=== PATIENT | female | born 1970 | race Caucasian/White ===

== ENCOUNTER 2017-10-28 12:43 | Emergency (ER) | payer MEDICAID, OTHER ==
[2017-10-28 12:58] LABS: URINE APPEARANCE CLEAR; URINE BILIRUBIN NEGATIVE (NEGATIVE); URINE BLOOD TRACE-I (NEGATIVE); URINE COLOR ORANGE; URINE KETONE NEGATIVE (NEGATIVE); URINE LEUKOCYTE ESTERASE SMALL (NEGATIVE); URINE NITRITE POSITIVE (NEGATIVE); URINE PROTEIN NEGATIVE (NEGATIVE)
[2017-10-28 13:00] LABS: HCG,QUALITATIVE URINE NEGATIVE (NEGATIVE)
[2017-10-28 13:12] LABS: URINE BACTERIA FEW; URINE RBC 0 - 2 (NONE SEEN); URINE SQUAMOUS EPITHELIAL CELL 0 - 2 /hpf
--- NOTE | 2017-10-28 13:19 | Emergency Department Record ---
History of Present Illness - General Chief complaint: Female Urogenital Problem Stated complaint: UTI OR BLADDER INFECTION? Time Seen by Provider: 10/28/17 13:08 Source: Patient Mode of Arrival: Ambulatory Limitations: No limitations - History of Present Illness Initial comments: The patient is here due to a 2 day hx of dysuria with mild low back pain. She has a hx of chronic low back pain due to a cyst per the patient. Now the pain is radiating up mildly. There is no pain down the legs or any leg numbness, weakness, or any bowel or bladder issues. MD Complaint: Dysuria Onset/Timin -: Days(s) Patient : No - Related Data Previous Rx's Medication Instructions Recorded Meloxicam 7.5 mg PO DAILY #14 tablet 10/28/17 Nitrofurantoin Lea [Macrobid] 100 mg PO BID #10 capsule 10/28/17 Allergies Allergy/AdvReac Type Severity Reaction Status Date / Time No Known Drug Allergies Allergy Verified 11/27/14 12:58 Travel Screening - Travel/Exposure Within Last 30 Days Have you traveled within the last 30 days?: No - Travel/Exposure Within Last Year Have you traveled outside the [place] in the last year?: No - Additonal Travel Details Have you been exposed to anyone with a communicable illness?: No - Travel Symptoms Symptom Screening: None Review of Systems Constitutional: Denies: Chills, Fever Eyes: Denies: Eye discharge ENT: Denies: Congestion Respiratory: Denies: Cough, Dyspnea Past Medical History - SOCIAL HISTORY Smoking Status: Never smoker Alcohol Use: None Drug Use: None - RESPIRATORY Hx Respiratory Disorders: No - CARDIOVASCULAR Hx Cardio Disorders: No - NEURO Hx Neuro Disorders: No - GI Hx GI Disorders: Yes Hx Wt Loss/Wt Gain: Yes Comment:: gallbladder issues - Hx Genitourinary Disorders: Yes Hx Kidney Stones: Yes Hx UTI: Yes Comment:: kidney stone, bladder infections and uti's - ENDOCRINE Hx Endocrine Disorders: No - MUSCULOSKELETAL Hx Musculoskeletal Disorders: No - PSYCH Hx Psych Problems: No - HEMATOLOGY/ONCOLOGY Hx Hematology/Oncology Disorders: Yes Hx Cancer: Yes Comment:: cervical cancer - sx to remove Family Medical History Any Significant Family History?: Yes Hx HTN: Father Physical Exam - General General Appearance: Alert, Oriented x3, Cooperative, No acute distress - Head Head exam: Atraumatic, Normocephalic, Normal inspection - Eye Eye exam: Normal appearance, PERRL - Neck Neck exam: Normal inspection, Full ROM. negative: Tenderness - Respiratory Respiratory exam: Normal lung sounds bilaterally. negative: Respiratory distress - Cardiovascular Cardiovascular Exam: Regular rate, Normal rhythm, Normal heart sounds - GI/Abdominal GI/Abdominal exam: Soft, Normal bowel sounds. negative: Tenderness - Extremities Extremities exam: Normal inspection, Full ROM, Normal capillary refill. negative: Tenderness - Back Back exam: Reports: Normal inspection, Full ROM. Denies: CVA tenderness (R), CVA tenderness (L), Muscle spasm, Rash noted, Tenderness - Neurological Neurological exam: Alert, Normal gait, Oriented X3, Reflexes normal. negative: Abnormal gait, Motor sensory deficit Course - Reevaluation(s) Reevaluation #1: The patient is doing well and denies any new pain or any issues. I did discuss the CT report that did not demonstrate any kidney stone or hydro. It did possible demonstrate a pelvic mass but since the patient has not had a JANETT I believe it is her uterus. Because of the possible pelvic mass which is an incidental finding she is to F/U with Dr. Bailey for a review of the official CT report and possible need for further testing. 10/28/17 14:25 Medical Decision Making - Data Complexity MDM Data: Labs Ordered and/or Reviewed, X-Ray Ordered and/or Reviewed - Lab Data Result diagrams: 10/28/17 13:33 10/28/17 13:33 Lab Results 10/28/17 Range/Units 12:55 Urine Color [place] H Urine Appearance Clear Urine pH 6.0 (5.0-8.0) Ur Specific [place] <= 1.005 (1.002-1.030) Urine Protein Negative (NEGATIVE) Urine Glucose (UA) 100 mg/dl H (NEGATIVE) Urine Ketones Negative (NEGATIVE) Urine Blood Trace-i (NEGATIVE) Urine Nitrite Positive H (NEGATIVE) Urine Bilirubin Negative (NEGATIVE) Urine Urobilinogen 1.0 (0.20 - 1.00) E.U./dL Ur Leukocyte Esterase Small H (NEGATIVE) Urine RBC 0 - 2 (NONE SEEN) Urine WBC 10 - 15 (0-2/hpf) U Non-Squamous Epi Cells 0 - 2 /hpf Urine Bacteria Few Urine HCG, Qual Negative (NEGATIVE) - Radiology Data Radiology results: Report reviewed (CT: Neg ureter stone or hydro. Poss pelvic mass vs uterus.) Disposition Disposition: Discharge Clinical Impression: UTI (urinary tract infection) Qualifiers: Urinary tract infection type: site unspecified Hematuria presence: without hematuria Qualified Code(s): N39.0 - Urinary tract infection, site not specified Disposition: Home, Self-Care Condition: (2) Stable Instructions: Urinary Tract Infection in Women (ED) Additional Instructions: Please take the Macrobid as directed along with the Meloxicam. Please see Dr. Bailey for recheck and to have the official CT report evaluated further. Return to the ER for any worsening symptoms. Prescriptions: Meloxicam 7.5 mg PO DAILY #14 tablet Nitrofurantoin Lea [Macrobid] 100 mg PO BID #10 capsule Forms: Patient Portal Access Time of Disposition: 14:29 Quality - Quality Measures Quality Measures: N/A - Blood Pressure Screening View Details: Yes Does Patient Have Any of the Following: No Blood Pressure Classification: Hypertensive Reading Systolic Measurement: 120 Diastolic Measurement: 94 Screening for High Blood Pressure: < First Hypertensive BP, F/U Documented > [ [id number]] First Hypertensive Follow-up Interventions: Referral to alternative/primary care provider.
[2017-10-28 13:40] LABS: BASO % 0.3 % (0-6); EOS % 1.1 % (0-6); GRAN % 62.6 % (47-80); HEMATOCRIT 37.6 % (35.0-47.0); MEAN CELL VOLUME 90.6 fl (81-97); MEAN CORPUSCULAR HEMOGLOBIN 31.3 pg (27-33); MEAN CORPUSCULAR HGB CONC 34.6 g/dl (32-36); MEAN PLATELET VOLUME 9.2 fl (7.4-10.4); PLATELET COUNT 286 K/uL (130-400); RED BLOOD COUNT 4.15 M/uL (3.80-5.40); RED CELL DISTRIBUTION WIDTH 12.8 % (11.5-14.5); WHITE BLOOD COUNT W/O DIFF 6.3 K/uL (4.2-12.2)
[2017-10-28 13:48] LABS: BLOOD UREA NITROGEN 12 mg/dL (6-20); CREATININE 0.7 mg/dL (0.5-0.9); EST GLOMERULAR FILTRATION RATE > 60 mL/min
[2017-10-28 13:51] LABS: GLUCOSE,RANDOM 97 mg/dL (74-109)
--- NOTE | 2017-10-31 08:42 | CT SCAN REPORT ---
EXAM: EMERGENCY CT OF THE ABDOMEN AND PELVIS WITHOUT CONTRAST HISTORY: LEFT FLANK PAIN, MULTIPLE URINARY TRACT INFECTIONS. TECHNIQUE: Axial CT scan of the abdomen and pelvis was performed without oral or IV contrast. Comparison: None. FINDINGS: No intrarenal calculi identified on either side. No hydronephrosis or hydroureter is seen on either side. There is a very tiny calcification seen on image 104 of 170 that is in the region of the left ureter. It is very difficult to determine if this is immediately adjacent to the left ureter or possibly in the left ureter although with no hydronephrosis I suspect this is a phlebolith immediately adjacent to the ureter, however, if there remains a strong clinical suspicion of a ureteral calculus, follow-up CT urography could be performed in an effort to better establish the relationship of this tiny calcification to the nondistended ureter. The ureters appear otherwise unremarkable bilaterally. No bladder calculus evident. In the right side of the pelvis there is an approximately 4.7 cm somewhat rounded structure with a CT density of 32. There is no history of hysterectomy and this may be the uterine fundus tilted towards the right although appears a bit atypical for the uterine fundus and could also be some form of right adnexal mass particularly if there has been a hysterectomy as the uterus is not otherwise clearly visualized. Correlation with the surgical history is suggested and this could be further assessed with a pelvic ultrasound if clinically desired. No calcified gallstones are seen within the gallbladder. Evaluation of the bowel and viscera is very limited without oral or IV contrast. Given this limitation, no definite hepatic, splenic, adrenal, pancreatic, or renal mass identified. The appendix is visualized as a normal caliber structure with no appendicitis identified. No free intraperitoneal air or free intraperitoneal fluid evident. Degenerative disk disease in the lower lumbar spine. IMPRESSION: 1. NO INTRARENAL CALCULI OR HYDRONEPHROSIS EVIDENT. TINY CALCIFICATION IN CLOSE PROXIMITY TO THE LEFT MID URETER MAY JUST BE AN ADJACENT VASCULAR CALCIFICATION THOUGH DIFFICULT TO BE CERTAIN. 2. 4.7 CM DENSITY RIGHT SIDE OF THE PELVIS QUESTIONABLY A TILTED UTERINE FUNDUS. IF THE UTERUS HAS BEEN RESECTED THIS MAY BE SOME FORM OF ADNEXAL MASS ON THE RIGHT. CORRELATION WITH THE SURGICAL HISTORY IS THEREFORE SUGGESTED AND IF WARRANTED, PELVIC ULTRASOUND WOULD BE RECOMMENDED. 3. DEGENERATIVE CHANGE IN THE LUMBAR SPINE. JOB NUMBER: [id number] [facility]
== END 2017-10-28 14:36 | disposition home or self-care (01) ==
LOC: ER 12:43
DX: N39.0 Urinary tract infection, site not specified (principal); M54.5 Low back pain; Z87.442 Personal history of urinary calculi; Z85.41 Personal history of malignant neoplasm of cervix uteri
CPT/HCPCS: 74176; 80048; 81001; 81025; 85025; 99283; 99284